=== PATIENT | female | born 1955 | race Caucasian/White ===

== ENCOUNTER 2025-05-29 10:52 | Inpatient (IN) | payer MEDICARE ==
[~2025-05-29] VITALS: Ht 157.5 cm; Wt 96.8 kg
[~2025-05-29 10:52] MED LIST: BISOPROLOL-HCT1 EAC1 PO; SERTRALINE HCL25 MG PO
[2025-05-29] MEDS: ONDANSETRON HCL INJ 2MG/ML 2ML 2 MG/ML VIAL IV STA (11:25)
[2025-05-29] MEDS: SODIUM CHLORIDE 0.9% 1000ML 1,000 ML IV ONE (11:26)
[2025-05-29] MEDS ORDERED: IOPAMIDOL 370 MG/ML 100 ML INFUS..BTL INJ ONE (11:49)
[2025-05-29 13:14] VITALS: PULSE 59; RESP 17; TEMP 97.6
[2025-05-29 14:45] VITALS: BP 103/50; PULSE 55; RESP 18; TEMP 99.9; O2SAT 98
[2025-05-29] MEDS: SODIUM CHLORIDE 0.9% 1000ML 1,000 ML IV SCH (15:25)
[2025-05-29] MEDS: METRONIDAZOLE 500MG/NS 100ML IV SCH (15:25)
[2025-05-29] MEDS ORDERED: BISOPROLOL-HCT1 EAC2 PO (15:32)
[2025-05-29] MEDS ORDERED: BUPROPION XL150 MG PO (15:34)
[2025-05-29] MEDS ORDERED: CLONAZEPAM1 MG PO (15:34)
[2025-05-29 15:50] VITALS: BP 103/52; PULSE 55; RESP 18; TEMP 99.9; O2SAT 93
[2025-05-29] MEDS ORDERED: Morphine 2mg Syringe 2 MG/ML SYR IV PRN (17:00)
[2025-05-29] MEDS ORDERED: HYDROCODONE/APAP 5MG-325MG TAB PO PRN (17:00)
[2025-05-29] MEDS: KETOROLAC TROMETHAMINE 30 MG/ML VIAL IV PRN (19:00)
[2025-05-29] MEDS: CLONAZEPAM 1 MG TAB PO SCH (20:51)
[2025-05-29 21:00] VITALS: BP 159/85; PULSE 90; RESP 18; TEMP 98.7; O2SAT 100
[2025-05-30] VITALS (9 sets, daily range): BP systolic 81–126; BP diastolic 55–74; PULSE 56–95; RESP 18–19; TEMP 97.6–98.3; O2SAT 96–100
[2025-05-30 08:55] LABS: BASOPHILS % 0.2 % (0.0-1.0); EOSINOPHILS % 1.4 % (0.0-6.0); LYMPHOCYTES % 19.8 % (18.0-39.1); MONOCYTES % 10.4 % (4.4-11.3); NEUTROPHILS % 67.7 % (38.7-80.0); RED CELL DISTRIBUTION WIDTH 14.8 % (11.7-14.4)
[2025-05-30 09:15] LABS: EST GLOMERULAR FILTRATION RATE 84.0 ML/MIN (>=60)
[2025-05-30] MEDS: BUPROPION HCL 150 MG TABCR PO SCH (09:59)
[2025-05-31] VITALS (7 sets, daily range): BP systolic 103–144; BP diastolic 55–76; PULSE 51–69; RESP 18; TEMP 97.4–98.1; O2SAT 96–100
[2025-05-31] MEDS ORDERED: CYMBALTA60 MG PO (09:20)
[2025-05-31] MEDS ORDERED: CRESTOR40 MG PO (09:21)
[2025-05-31] MEDS ORDERED: DULCOLAX10 MG PO (09:33)
[2025-06-01] VITALS (7 sets, daily range): BP systolic 118–150; BP diastolic 62–72; PULSE 54–57; RESP 18; TEMP 97.6–98.1; O2SAT 95–99
[2025-06-01 06:26] LABS: BASOPHILS % 0.6 % (0.0-1.0); EOSINOPHILS % 3.2 % (0.0-6.0); LYMPHOCYTES % 29.5 % (18.0-39.1); MONOCYTES % 11.2 % (4.4-11.3); NEUTROPHILS % 55.2 % (38.7-80.0); RED CELL DISTRIBUTION WIDTH 14.6 % (11.7-14.4)
[2025-06-01 07:17] LABS: EST GLOMERULAR FILTRATION RATE 88.0 ML/MIN (>=60)
[2025-06-01] MEDS ORDERED: SIMETHICONE 80 MG CHEW PO PRN (09:30)
[2025-06-01] MEDS: POLYETHYLENE GLYCOL 3350 17 GM PACK PO SCH (11:30)
[2025-06-01] MEDS ORDERED: MAGNESIUM HYDROXIDE 30 ML UDC PO PRN (11:30)
[2025-06-01] MEDS: SIMETHICONE 80 MG CHEW PO PRN (11:58)
[2025-06-01] MEDS: SENNA-S TABLET PO SCH (11:58)
[2025-06-01] MEDS: ACETAMINOPHEN 325 MG TAB PO PRN (21:38)
[2025-06-02] VITALS: BP 141/67; PULSE 60; RESP 18; TEMP 98.3; O2SAT 97
[2025-06-02 04:00] VITALS: BP 146/72; PULSE 62; RESP 20; TEMP 98.6; O2SAT 98
[2025-06-02 06:32] LABS: BASOPHILS % 0.3 % (0.0-1.0); EOSINOPHILS % 3.4 % (0.0-6.0); LYMPHOCYTES % 32.9 % (18.0-39.1); MONOCYTES % 11.8 % (4.4-11.3); NEUTROPHILS % 51.3 % (38.7-80.0); RED CELL DISTRIBUTION WIDTH 14.8 % (11.7-14.4)
[2025-06-02 07:07] LABS: EST GLOMERULAR FILTRATION RATE 83.0 ML/MIN (>=60)
[2025-06-02] MEDS: SODIUM CHLORIDE 0.9% 250ML 250 ML ONE (07:49)
[2025-06-02 08:00] VITALS: BP 128/62; PULSE 60; RESP 17; TEMP 97.6; O2SAT 96
[2025-06-02 09:25] VITALS: BP 128/62; PULSE 60; RESP 17; TEMP 97.6; O2SAT 96
[2025-06-02] MEDS: ONDANSETRON HCL INJ 2MG/ML 2ML 2 MG/ML VIAL IV PRN (11:55)
[2025-06-02 12:00] VITALS: BP 152/64; PULSE 56; RESP 17; TEMP 98.2; O2SAT 100
== END 2025-06-02 13:24 | disposition home or self-care (01) | DRG 392 ==
LOC: FSED 10:59 → ERHOLD 13:09 → MED/SURG2 14:50
PROVIDERS: ADMIT Internal Medicine; ATTEND Internal Medicine
DX: K57.32 Diverticulitis of large intestine without perforation or abscess without bleeding (principal); N39.0 Urinary tract infection, site not specified; B96.20 Unspecified Escherichia coli [E. coli] as the cause of diseases classified elsewhere; I10 Essential (primary) hypertension; N20.0 Calculus of kidney; K52.9 Noninfective gastroenteritis and colitis, unspecified; E78.00 Pure hypercholesterolemia, unspecified; F41.9 Anxiety disorder, unspecified; M06.9 Rheumatoid arthritis, unspecified; Z90.49 Acquired absence of other specified parts of digestive tract; Z90.710 Acquired absence of both cervix and uterus
CPT/HCPCS: 36415; 74177; 80048; 80053; 81003; 85025; 87040; 87086; 87186; 99252; 99283; J0696; J1885; J2405; J2470; J2543; J7030; J7050; Q9967